=== PATIENT | male | born 1960 | race Caucasian/White ===

== ENCOUNTER → 2017-10-22 12:49 | Outpatient (CLI) | payer MEDICARE, SELFPAY | PROVIDERS: Family Provider Internal Medicine; PCP Internal Medicine; Visit Provider Internal Medicine | DX: R00.2 Palpitations (principal) | CPT/HCPCS: 93225; 93226 ==

== ENCOUNTER 2022-01-18 19:24 | Emergency (ER) | payer MEDICARE, SELFPAY ==
[2022-01-18 19:25] VITALS: BP 153/86; PULSE 77; RESP 16; TEMP 36.2; O2SAT 96; BMI 39.5
--- NOTE | 2022-01-18 19:45 | CT_ITS ---
INDICATION: fall EXAMINATION: CT BRAIN - CT Head or Brain W/O Contrast Injection TECHNIQUE: Multiple axial images were obtained of the head without intravenous contrast. A radiation dose optimization technique was used for this scan. IV Contrast dosage and agent: None. COMPARISON: 02/08/[address] FINDINGS: BRAIN PARENCHYMA: No intra- or extra-axial hemorrhage. No intracranial mass or mass effect. Jackson/white matter differentiation is maintained and there is no blurring of the basal ganglia. There is no hyperdense vessel. Posterior fossa structures are notable for prominent cisterna magna area normal vermis.. CSF SPACES: Appropriate for age. No hydrocephalus. Basal cisterns are patent. CALVARIUM, SKULL BASE, PARANASAL SINUSES AND MASTOID AIR CELLS: Clear. No discrete lytic or blastic abnormalities. Intact calvarium and skull base. ORBITS: Both globes, extraocular muscles, optic nerves and retrobulbar fat appear unremarkable. ASPECTS Score for Acute Strokes: 10 Incompletely visualized advanced degenerative changes lateral axial articulation. CT/Brain/Head without Contrast IMPRESSION: No acute intracranial pathology. Electronically Signed: Santo Figueroa DO at 21:30 EDT ,
--- NOTE | 2022-01-18 19:45 | CT_ITS ---
STUDY: CT ORBITS WITHOUT CONTRAST REASON FOR EXAM: Male, 61 years old. eye trauma RADIATION DOSAGE (If Supplied By Facility): CTDIvol = ( 29.38 ) mGy, DLP = ( 1850.06 ) mGycm TECHNIQUE: The patient was scanned in a multi detector CT scanner. Transaxial imaging was performed without the administration of intravenous contrast material. Sagittal and coronal images were reconstructed. Individualized dose optimization techniques were used for this CT. COMPARISON: None. FINDINGS: Normal globes. Normal intraconal spaces. Normal optic nerve sheath complex. Normal bilateral extraocular muscles. Normal lacrimal glands. Normal bilateral medial and inferior orbital mcduffie. Normal bilateral maxillary bones. Normal bilateral frontozygomatic arches. Normal bilateral zygomatic temporal arches. Normal frontal sinus. Normal ethmoidal sinuses. Normal maxillary sinuses. Normal sphenoid sinuses. Normal soft tissue structures. CT/Orb Sella Post Fossa Ear w/o IMPRESSION: Normal CT examination of the bilateral orbits. Electronically Signed: Hector Horvath MD at 20:44 EDT ,
--- NOTE | 2022-01-18 19:47 | CT_ITS ---
INDICATION: trauma EXAMINATION: CT ABDOMEN AND PELVIS WITHOUT CONTRAST - CT Abdomen And Pelvis W/O Contrast Injection TECHNIQUE: Helically acquired images were obtained of the abdomen and pelvis without oral or IV contrast. A radiation dose optimization technique was used for this scan. IV Contrast dosage and agent: None. Oral contrast: None. COMPARISON: CT abdomen and pelvis from 04/27/2016. FINDINGS: LOWER CHEST: Stable visualized lung bases are clear. No cardiomegaly or pericardial effusion. LIVER: Homogeneous. No focal mass. GALLBLADDER AND BILIARY TREE: Gallbladder is collapsed or surgically absent. No fluid in the gallbladder fossa. No intra- or extrahepatic biliary ductal dilation. PANCREAS: No focal cystic or solid mass. SPLEEN: Normal size without focal cystic or solid mass. ADRENAL GLANDS: No nodules. KIDNEYS, URETERS and BLADDER: Normal renal size and position. No mass. No hydronephrosis. 3 left and one right punctate nonobstructing calcification kidneys. Bladder is unremarkable. PERITONEUM: No ascites or free air. No other fluid collection. BOWEL: No evidence of acute appendicitis. Nonvisualized appendix. No abnormally distended bowel loops or air fluid levels. No wall thickening or mass. No focal inflammatory changes. There are scattered diverticuli sigmoid colon. LYMPH NODES: No enlarged mesenteric or retroperitoneal lymph nodes. VESSELS: Aorta is non-dilated. Scattered atherosclerotic calcifications with no aneurysmal dilation or luminal stenosis. REPRODUCTIVE ORGANS: Minimal prostate enlargement. ABDOMINAL WALL: No discrete abdominal or pelvic wall hernia. BONES: No lytic or blastic abnormality. No fracture or focal malalignment. There are moderate degenerative changes bilateral hips and multilevel degenerative endplate sclerosis and anterior osteophyte formation. No severe central spinal canal canal stenosis suggested. CT/Abdomen/Pelvis without Cont IMPRESSION: Limited assessment for a trauma patient without contrast. No intra-abdominal free fluid or free air no evidence of solid or hollow viscus organ injury on limited assessment. No fracture or focal malalignment. Moderately advanced degenerative changes bilateral hips and degenerative changes spine. Electronically Signed: aSnto Figueroa DO at 21:26 EDT ,
--- NOTE | 2022-01-18 19:48 | CT_ITS ---
STUDY: CT CERVICAL SPINE WITHOUT CONTRAST REASON FOR EXAM: Male, 61 years old. fall RADIATION DOSAGE (If Supplied By Facility): CTDIvol = ( 34.65 ) mGy, DLP = ( 1850.06 ) mGycm TECHNIQUE: High resolution transaxial imaging was performed without contrast material. Sagittal and coronal images were reconstructed. Individualized dose optimization techniques were used for this CT. COMPARISON: None FINDINGS: Normal craniovertebral junction. Normal anterior atlantoaxial articulation. Normal odontoid process. Decreased cervical lordosis. Normal vertebral bodies and posterior osseous elements. C2-3: Normal endplates. Normal disc height and morphology. Normal central canal and intervertebral neuroforamina. C3-4: Mild anterior endplate spurring.. Normal disc height and morphology. Normal central canal and intervertebral neuroforamina. C4-5: Mild anterior endplate spurring.. Normal disc height and morphology. Normal central canal and intervertebral neuroforamina. C5-6: Mild endplate spurring.. Normal disc height and morphology. Normal central canal. Mild left neuroforaminal encroachment secondary to bony hypertrophy. C6-7: Minor anterior endplate spurring. Normal disc height and morphology. Normal central canal and intervertebral neuroforamina. C7-T1: Normal endplates. Normal disc height and morphology. Normal central canal and intervertebral neuroforamina. Normal visualized soft tissue structures. CT/Spine Cervical without Contras IMPRESSION: No evidence for acute fracture or other significant bony pathology. Moderate spondylosis Electronically Signed: Hector Horvath MD at 20:42 EDT ,
--- NOTE | 2022-01-18 19:49 | EDS_ITS ---
HPI History of Present Illness Chief Complaint: Fall Informant: patient Narrative Narrative: Patient presents with eye injury and fall. Patient is working on remodeling her basement. He states the nail gun jammed. He open the protective cover and apparently because the nails were spring-loaded one flew out the top of the nail gun striking him in the left eye. He then fell approximately 5 feet off of a ladder landing on his buttocks and rolling to his back. He is complaining of some low back pain as well as left eye pain. He does report vision change. [facility] Medical History Fuchs' corneal dystrophy GERD (gastroesophageal reflux disease) HTN (hypertension) Hyperlipidemia Hypertension Obstructive apnea Status post corneal transplants Home Medications gabapentin 600 mg tablet 400 mg PO QHS 04/21/15 [History Last Taken 04/20/15] omeprazole 20 mg capsule,delayed release 40 mg PO DAILY 04/21/15 [History Last Taken 04/20/15] tamsulosin 0.4 mg capsule 0.4 mg PO DAILY 04/21/15 [History Last Taken 04/20/15] hydrocodone-acetaminophen 5-325mg 5mg-325mg 1 tab PO Q6H PRN PRN Pain ##15 04/24/16 [Rx Last Taken Unknown] Lisinopril/Hydrochlorothiazide [Zestoretic 20/25 Tablet] 1 tab PO DAILY 10/12/16 [History Last Taken Unknown] buspirone 5 mg tablet 5 mg PO BID 10/12/16 [History Last Taken Unknown] cholecalciferol (vitamin D3) 25 mcg (1,000 unit) tablet (Vitamin D3) 1,000 unit PO DAILY 10/12/16 [History Last Taken Unknown] dicyclomine 10 mg capsule 20 mg PO DAILY 10/12/16 [History Last Taken Unknown] multivitamin with folic acid 400 mcg tablet (Thera) 1 tab PO DAILY 10/12/16 [History Last Taken Unknown] prednisolone acetate 1 % eye drops,suspension (Pred Forte) 1 drp DAILY 10/12/16 [History Last Taken Unknown] sertraline 100 mg tablet 100 mg PO DAILY 10/12/16 [History Last Taken Unknown] hydrocodone-acetaminophen 5-325mg 5mg-325mg 1 tab PO Q6H PRN pain 3 days #10 tabs 01/18/22 [Rx Last Taken Unknown] Allergy/AdvReac Type Severity Reaction Status Date / Time shellfish derived Allergy Anaphylaxis Verified 01/18/22 19:29 Social History Smoking Status: Never smoker ROS ROS ED Constitutional Constitutional ED: Denies chills or fever(s) Eyes Eyes: Reports blurry vision left and change in vision; Denies discharge from eye(s) ENT ENT ED: Denies discharge from eye(s), rhinorrhea or sore throat Cardiovascular Cardiovascular: Denies chest pain or palpitations Respiratory/Chest Respiratory/Chest: Denies cough or dyspnea Gastrointestinal Gastrointestinal: Denies abdominal pain, diarrhea, nausea or vomiting Genitourinary Genitourinary ED: Denies dysuria Musculoskeletal Musculoskeletal: Reports back pain; Denies extremity pain Integumentary Denies Abrasions or rash Neurologic Neurologic: Denies headache(s) or weakness Allergic/Immunologic Allergic/Immunologic ED: Denies lip swelling or urticaria EXAM Physical Exam Const Vital Signs: 01/18/22 19:25 01/18/22 21:34 Temperature 97.1 F L Temperature Source Temporal Pulse Rate 77 72 Respiratory Rate 16 15 Blood Pressure 153/86 H 132/74 H Blood Pressure Mean 108 93 Pulse Ox 96 98 Oxygen Delivery Method Room Air Room Air Positive well nourished and well developed General Appearance ED: well developed HEENT HEENT Narrative: Mild left periorbital edema. Extraocular movements are intact. Pupils equal in size. No significant conjunctival injection at this time. Eyes PERRL and EOMs intact bilaterally Chest Wall inspection of chest normal and palpation of chest normal Resp normal respiratory effort and clear to auscultation bilaterally Cardio regular rhythm Rate: regular rate GI normal to inspection, nondistended, normoactive bowel sounds Back/Spine Back/Spine Narrative: No lumbar tenderness, right greater than left. Extremity normal to inspection Neuro oriented x3, CN's II-XII intact bilaterally, moves all extremities, no focal motor deficits and no sensory deficits noted Psych mental status grossly normal Skin no rashes or lesions noted MDM MDM MDM Narrative Medical decision making narrative: Patient sent for CT scan of the head, orbits, C-spine, abdomen and pelvis. Radiography Diagnostic Testing: Clinical Impression(s) from Imaging Studies Brain CT 01/18/22 19:45 IMPRESSION: No acute intracranial pathology. Electronically Signed: Santo Figueroa DO at 21:30 EDT , CT Orbit Sella Inner 01/18/22 19:45 IMPRESSION: Normal CT examination of the bilateral orbits. Electronically Signed: Hector Horvath MD at 20:44 EDT , Abdomen/Pelvis CT 01/18/22 19:47 IMPRESSION: Limited assessment for a trauma patient without contrast. No intra-abdominal free fluid or free air no evidence of solid or hollow viscus organ injury on limited assessment. No fracture or focal malalignment. Moderately advanced degenerative changes bilateral hips and degenerative changes spine. Electronically Signed: Santo Figueroa DO at 21:26 EDT , Cervical Spine CT 01/18/22 19:48 IMPRESSION: No evidence for acute fracture or other significant bony pathology. Moderate spondylosis Electronically Signed: Hector Horvath MD at 20:42 EDT , Treatment and Re-Evaluation Narrative: CT scans reveal no obvious evidence of acute injury. Head C-spine and orbits are normal. C-spine shows no evidence of fracture. CT abdomen and pelvis shows no fracture or focal malalignment. Degenerative changes are noted in the hips and spine. Patient is given [place] for pain. Tetracaine is applied to the left eye. On fluorescein staining he does have a small corneal abrasion over the pupil. He will be treated with gentamicin ophthalmic drops. Given his eye history with cornea and lens replacements I will speak with ophthalmology to help arrange close follow-up. Discharge Plan Triage Chief Complaint: Fall Other Complaint: Back Eye Problem ED Provider: Jacey Lopez Dx/Rx/DC Orders Clinical Impression: Abrasion, corneal, Fall, Back contusion Instructions: ED Back Pain (Acute or Chronic), ED Back Sprain/Strain, ED Corneal Abrasion Prescriptions: New hydrocodone-acetaminophen 5-325 mg tablet 1 tab PO Q6H PRN (Reason: pain) 3 Days Qty: 10 0RF No Action gabapentin 600 MG tablet 400 mg PO QHS Label Comments: NERVE PAIN tamsulosin 0.4 MG capsule 0.4 mg PO DAILY Label Comments: PROSTATE omeprazole 20 MG capsule 40 mg PO DAILY Label Comments: STOMACH hydrocodone-acetaminophen 1 TABLET tablet 1 tab PO Q6H PRN PRN (Reason: Pain) Qty: 15 0RF buspirone 5 MG tablet 5 mg PO BID sertraline 100 MG tablet 100 mg PO DAILY cholecalciferol (vitamin D3) [Vitamin D3] 1,000 UNIT tablet 1,000 unit PO DAILY multivitamin with folic acid [Thera] 1 TABLET tablet 1 tab PO DAILY Lisinopril/Hydrochlorothiazide [Zestoretic 20/25 Tablet] 1 TABLET tablet 1 tab PO DAILY dicyclomine 10 MG capsule 20 mg PO DAILY prednisolone acetate [Pred Forte] 10 ML drops,suspension 1 drp Each Eye DAILY Primary Care Provider: Michael Ribeiro Referrals: Ace Hidalgo MD [STAFF PHYSICIAN] - 1 Day Michael Riberio MD [Primary Care Provider] - 5-7 Days Activity Restrictions/Additional Instructions: Gentamicin ointment: 2 drops to affected eye every 4 hours. Follow-up with ophthalmology tomorrow morning. Please call the office at 7:50 AM to be seen tomorrow morning. Disposition Disposition: Home, Self Care
[2022-01-18] MEDS: Fluorescein 1 MG STRIP 1 STRIP LEFT EYE (21:22)
[2022-01-18] MEDS: Tetracaine 0.5% Ophthalmic Bottle 1 DRP LEFT EYE (21:22)
[2022-01-18] MEDS: HYDROcodone Bitartrate/Apap 5/325 Tablet PO (21:30)
[2022-01-18] MEDS: Gentamicin Sulfate 1 OPTH.BTL 2 DRP LEFT EYE (21:31)
[2022-01-18 21:34] VITALS: BP 132/74; PULSE 72; RESP 15; O2SAT 98
[2022-01-18 22:16] VITALS: BP 143/79; PULSE 82; RESP 16; O2SAT 97
== END 2022-01-18 22:19 | disposition home or self-care (01) ==
PROVIDERS: Emergency Provider Emergency Medicine; PCP Internal Medicine; Visit Provider Emergency Medicine
DX: S05.00XA Injury of conjunctiva and corneal abrasion without foreign body, unspecified eye, initial encounter (principal); H53.9 Unspecified visual disturbance; S20.229A Contusion of unspecified back wall of thorax, initial encounter; W11.XXXA Fall on and from ladder, initial encounter; W23.0XXA Caught, crushed, jammed, or pinched between moving objects, initial encounter; E78.5 Hyperlipidemia, unspecified; Y99.0 Civilian activity done for income or pay; I10 Essential (primary) hypertension; H57.12 Ocular pain, left eye; K21.9 Gastro-esophageal reflux disease without esophagitis; Z94.7 Corneal transplant status
CPT/HCPCS: 70450; 70480; 72125; 74176; 99283